=== PATIENT | female | born 1980 | race Caucasian/White ===

== ENCOUNTER 2017-05-12 15:19 | Emergency (ER) | payer SELFPAY ==
[2017-05-12] MEDS ORDERED: Ketorolac INJ* 60 MG/2 ML VIAL IM ONE (16:34)
--- NOTE | 2017-05-12 16:43 | UC ---
Back Pain HPI - HPI Summary HPI Summary: 37 y/o female presents to the urgent care c/o of lower back pain after [facility] and "tweaked" her back at 1300pm. Pt reports her pain is 10/10 specially with movement, walking or sitting. Pt states she injured her back 3 years ago at work, but she has never f/u treatment since symptoms resolved. Pt denies fever, urinary or fecal incontinence. Saddle anesthesia, tingling or numbness over the lower extremities, SOB, chest pain, N/ V/D. Pt has not other complains - History of Current Complaint Chief Complaint: UCBackPain Stated Complaint: BACK PAIN-PT FELL Time Seen by Provider: 05/12/17 16:24 Hx Obtained From: Patient Hx Last Menstrual Period: today ?: No Onset/Duration: Sudden Onset, Lasting Hours, Still Present Timing: Constant Severity Initially: Severe Severity Currently: Severe Pain Intensity: 10 Pain Scale Used: 0-10 Numeric Back Pain: Is Discrete @ - alt the lower back w/ any radiation Character: Sharp Aggravating: Movement, Walking Alleviating: Rest Associated Signs And Symptoms: Positive: Negative. Negative: Fever, Weakness, Numbness, Bladder Incontinence, Bowel Incontinence, Weight Loss, Pain with Weight Bearing - Risk Factors AAA Risk Factors: Negative TAD Risk Factors: Negative Cauda Equina Risk Factors: Negative Epidural Abscess Risk Factors: Negative - Allergies/Home Medications Allergies/Adverse Reactions: Allergies Allergy/AdvReac Type Severity Reaction Status Date / Time No Known Allergies Allergy Verified 04/14/16 17:24 PMH/Surg Hx/FS Hx/Imm Hx Previously Healthy: Yes - Surgical History Surgical History: Yes Surgery Procedure, Year, and Place: tubal ligation, 1999,. jaw repair 2004. LT HAND - TENDON REPAIR - Family History Known Family History: Positive: Hypertension Family History: DVT - Social History Occupation: Employed Full-time Lives: With Family Alcohol Use: None Substance Use Type: None Smoking Status (MU): Former Smoker Type: Cigarettes Amount Used/How Often: 2-3 cigs daily Household Exposure Type: Cigarettes Review of Systems Constitutional: Negative Skin: Negative Eyes: Negative ENT: Negative Respiratory: Negative Cardiovascular: Negative Gastrointestinal: Negative Genitourinary: Negative Motor: Negative Neurovascular: Negative Musculoskeletal: Other: - Lower back pain Neurological: Negative Psychological: Negative All Other Systems Reviewed And Are Negative: Yes Physical Exam Triage Information Reviewed: Yes Appearance: Well-Appearing, No Pain Distress, Well-Nourished Vital Signs: Initial Vital Signs Temp 98.1 F 05/12/17 15:35 Pulse 78 05/12/17 15:35 Resp 18 05/12/17 15:35 BP 151/83 05/12/17 15:35 Pulse Ox 98 05/12/17 15:35 Vital Signs Reviewed: Yes Eye Exam: Normal Eyes: Positive: Conjunctiva Clear - PERRLA, EOMI, fundi grossly normal ENT Exam: Normal ENT: Positive: Normal ENT inspection, Hearing grossly normal, Pharynx normal, TMs normal Dental Exam: Normal Neck exam: Normal Neck: Positive: Supple, Nontender, No Lymphadenopathy Respiratory Exam: Normal Respiratory: Positive: Chest non-tender, Lungs clear, Normal breath sounds Cardiovascular Exam: Normal Cardiovascular: Positive: RRR, No Murmur, Pulses Normal, Brisk Capillary Refill Abdominal Exam: Normal Abdomen Description: Positive: Nontender, No Organomegaly, Soft. Negative: CVA Tenderness (R), CVA Tenderness (L) Bowel Sounds: Positive: Present Musculoskeletal Exam: Normal Musculoskeletal: Positive: Other: - BACK: Patient walked into the urgent care room with symmetric ambulation, No signs of limping, antalgic, able to bear weight. No signs of trauma, No masses palpated. Point tenderness at the level of L5-S1, w/ paraspinal muscle tenderness and spasm at the same level. No CVAT, no flank ecchymosis . No sacroiliac notch tenderness, No saddle anesthesia.ROM: limited flexion/ extension/ lateral bending and rotation due to pain, Straight Leg Raise: negative. Patellar reflexes: brisk, symmetric Muscle strength lower extremities. Dorsiflexion/ plantar flexion of ankles. Heel/ toe walk. Lower extremities: Femoral, popliteal, posterior tibial, and dorsalis pedis pulses WNL Neurological Exam: Normal Psychological Exam: Normal Skin Exam: Normal Back Pain Course/Dx - Course Course Of Treatment: 37 y/o female presents to the urgent care c/o of lower back pain after she stepped off the curb at [employer] and "tweaked" her back at 1300pm. HX obtained. Lubosacral Xray ordered: Impression: negative. Pt D/C home w/ Rx Narpoxen and Felxeril Po to alleviate symptoms. Pt BP elevated today, advised to decrease salt intake and monitor her BP and f/u with her PCP for furhter management and treatment. Pt understood and agreed. - Differential Dx/Diagnosis Differential Diagnosis/HQI/PQRI: Arthritis, Herniated Disc, Renal Colic, Septic Arthritis, Strain, Sprain Provider Diagnoses: 1- Acute lower back pain. 2- Elevated blood pressure w/o HX of HTN Discharge - Discharge Plan Condition: Stable Disposition: HOME Prescriptions: Cyclobenzaprine TAB* [Flexeril 10 MG TAB*] 10 mg PO TID PRN #21 tab PRN Reason: Spasms - Back Naproxen TAB* [Naprosyn 250 mg TAB*] 500 mg PO Q8H PRN #21 tab PRN Reason: Pain Patient Education Materials: Acute Low Back Pain (ED), Low Sodium Diet (ED) Referrals: [facility] [place] PHYSICIAN REFERRAL [Outside] - 1 Week No Primary Care Phys,NOPCP [Primary Care Provider] - Additional Instructions: Please take medications as directed. Please apply ice, rest and wear a back support. Avoid strenuous exercise, heavy lifting. Please f/u with a PCP form the [facility] referral center for further evaluation and treatment if not improvement or symptoms worsen.
--- NOTE | 2017-05-12 17:23 | RAD ---
Indication: Low back pain post fall today. Severe pain and decreased range of motion. Comparison: February 04, 2016 MRI. Technique: AP, lateral, and oblique views lumbar sacral spine. Report: Alignment is anatomic. No cortical disruption or trabecular impaction to indicate a vertebral body fracture. Oblique views without evidence for spondylolysis. Preserved disc spaces. Unremarkable soft tissue contours. Moderately large volume of stool in the colon. IMPRESSION: Negative lumbar sacral spine radiographic exam. No traumatic injury evident.
[2017-05-12 17:24] VITALS: BP 133/65
== END 2017-05-12 17:41 | disposition home or self-care (01) ==
LOC: UCEAST 15:19
DX: M54.5 Low back pain (principal); R03.0 Elevated blood-pressure reading, without diagnosis of hypertension; Z87.891 Personal history of nicotine dependence
CPT/HCPCS: 72110; 96372; 99212; G0463; J1885

== ENCOUNTER 2017-05-27 14:39 | Emergency (ER) | payer SELFPAY ==
[2017-05-27 15:05] VITALS: BP 122/58
--- NOTE | 2017-05-27 15:12 | UC ---
Bite Injury/Animal HPI - HPI Summary HPI Summary: 37 year old female presents with a insect bite on her right forearm. - History of Current Complaint Chief Complaint: DISHAkin Stated Complaint: BUG BITE WITH RED LINE ON ARM Time Seen by Provider: 05/27/17 15:10 Hx Last Menstrual Period: 05/05/17 - Allergies/Home Medications Allergies/Adverse Reactions: Allergies Allergy/AdvReac Type Severity Reaction Status Date / Time No Known Allergies Allergy Verified 04/14/16 17:24 Home Medications: Home Medications Diphenhydramine HCl (Topical) [Benadryl Itch Stopping 2% GEL] 05/27/17 [History ] Diphenhydramine HCl [Benadryl Allergy 25 MG TAB] 50 mg PO 05/27/17 [History] PMH/Surg Hx/FS Hx/Imm Hx Previously Healthy: Yes - Surgical History Surgical History: Yes Surgery Procedure, Year, and Place: tubal ligation, 1999,. jaw repair 2004. LT HAND - TENDON REPAIR - Family History Known Family History: Positive: Hypertension Family History: DVT - Social History Alcohol Use: None Substance Use Type: None Smoking Status (MU): Former Smoker Type: Cigarettes Amount Used/How Often: 2-3 cigs daily Household Exposure Type: Cigarettes Review of Systems Constitutional: Negative Skin: Other - right forearm insect bite Eyes: Negative ENT: Negative Respiratory: Negative Cardiovascular: Negative Gastrointestinal: Negative Genitourinary: Negative Motor: Negative Neurovascular: Negative Musculoskeletal: Negative Neurological: Negative Psychological: Negative All Other Systems Reviewed And Are Negative: Yes Physical Exam Triage Information Reviewed: Yes Vital Signs: Initial Vital Signs Temp 36.7 C 05/27/17 15:02 Pulse 85 05/27/17 15:02 Resp 18 05/27/17 15:02 BP 122/58 05/27/17 15:02 Pulse Ox 100 05/27/17 15:02 Eye Exam: Normal ENT Exam: Normal Dental Exam: Normal Neck exam: Normal Neck: Positive: 1 Respiratory Exam: Normal Cardiovascular Exam: Normal Abdominal Exam: Normal Musculoskeletal Exam: Normal Neurological Exam: Normal Psychological Exam: Normal Skin: Positive: Other - right forearm insect bite Bite Injury Course/Dx - Differential Dx/Diagnosis Provider Diagnoses: right forearm insect bite Discharge - Discharge Plan Condition: Stable Disposition: HOME Prescriptions: Mupirocin 2% OINT* [Bactroban 2 % Oint*] 1 applic TOPICAL BID #1 tube Sulfamethox/Trimethoprim DS* [Bactrim DS 800/160 TAB*] 1 tab PO BID #14 tab Patient Education Materials: Insect Bite or Sting (ED) Referrals: No Primary Care Phys,NOPCP [Primary Care Provider] -
== END 2017-05-27 15:59 | disposition home or self-care (01) ==
LOC: UCEAST 14:39
DX: S50.861A Insect bite (nonvenomous) of right forearm, initial encounter (principal); Z87.891 Personal history of nicotine dependence; W57.XXXA Bitten or stung by nonvenomous insect and other nonvenomous arthropods, initial encounter
CPT/HCPCS: 99212; G0463

== ENCOUNTER 2017-07-26 13:34 | Emergency (ER) | payer SELFPAY ==
[2017-07-26 14:23] VITALS: BP 122/63
--- NOTE | 2017-07-26 15:01 | UC ---
Skin Complaint HPI - HPI Summary HPI Summary: bite five insect bites on knee that are getting more painful red and swollen-- no streaking - History of Current Complaint Chief Complaint: UCSkin Time Seen by Provider: 07/26/17 15:00 Stated Complaint: SPIDER BITE Hx Obtained From: Patient Hx Last Menstrual Period: one week ago ?: No Onset/Duration: Sudden Onset, Lasting Days, Worse Since - getting worse through out the day Timing: Constant Onset Severity: Mild Current Severity: Moderate Pain Intensity: 6 Pain Scale Used: 0-10 Numeric Location: Discrete Character: Swelling, Pain, Redness Aggravating Factor(s): Nothing Alleviating Factor(s): Nothing Associated Signs & Symptoms: Positive: Negative Related History: Insect Bite/Sting - Allergy/Home Medications Allergies/Adverse Reactions: Allergies Allergy/AdvReac Type Severity Reaction Status Date / Time No Known Allergies Allergy Verified 07/26/17 14:23 Review of Systems Constitutional: Negative Skin: Other - spreading painful erythema Eyes: Negative ENT: Negative Respiratory: Negative Cardiovascular: Negative Gastrointestinal: Negative Genitourinary: Negative Motor: Negative Neurovascular: Negative Musculoskeletal: Negative Neurological: Negative Psychological: Negative Is Patient Immunocompromised?: No All Other Systems Reviewed And Are Negative: Yes PMH/Surg Hx/FS Hx/Imm Hx Previously Healthy: Yes - Surgical History Surgical History: Yes Surgery Procedure, Year, and Place: tubal ligation, 1999,. jaw repair 2004. LT HAND - TENDON REPAIR - Family History Known Family History: Positive: Hypertension Family History: DVT - Social History Occupation: Employed Full-time Lives: With Family Alcohol Use: None Substance Use Type: None Smoking Status (MU): Former Smoker Type: Cigarettes Amount Used/How Often: 2-3 cigs daily Household Exposure Type: Cigarettes Physical Exam Triage Information Reviewed: Yes Appearance: Well-Appearing, No Pain Distress, Well-Nourished Vital Signs: Initial Vital Signs Temp 98.0 F 07/26/17 14:21 Pulse 77 07/26/17 14:21 Resp 12 07/26/17 14:21 BP 122/63 07/26/17 14:21 Pulse Ox 100 07/26/17 14:21 Vital Signs Reviewed: Yes Eye Exam: Normal Eyes: Positive: Conjunctiva Clear ENT Exam: Normal ENT: Positive: Normal ENT inspection, Hearing grossly normal. Negative: Nasal congestion, Nasal drainage, Trismus, Muffled/hoarse voice Dental Exam: Normal Neck exam: Normal Neck: Positive: Supple, Nontender Respiratory Exam: Normal Respiratory: Positive: Chest non-tender, No respiratory distress, No accessory muscle use Cardiovascular Exam: Normal Cardiovascular: Positive: RRR, Pulses Normal, Brisk Capillary Refill Musculoskeletal Exam: Normal Musculoskeletal: Positive: Strength Intact, ROM Intact, No Edema Neurological Exam: Normal Neurological: Positive: Alert, Muscle Tone Normal Psychological Exam: Normal Skin: Positive: Other - erythema around 5 insect bites 3 have blistered and opened Course/Dx - Course Course Of Treatment: Bactrim, warm compress follow with pcp - Diagnoses Provider Diagnoses: cellulitis right knee Discharge - Discharge Plan Condition: Stable Disposition: HOME Prescriptions: Ibuprofen TAB* [Motrin TAB* 600 MG] 600 mg PO Q6H PRN #40 tab PRN Reason: pain Sulfamethox/Trimethoprim DS* [Bactrim DS 800/160 TAB*] 1 tab PO BID #20 tab Patient Education Materials: Wound Infection (ED), Warm Compress or Soak (ED) Referrals: [facility] [Provider Group] - If Needed [facility] [Outside] - If Needed
== END 2017-07-26 15:19 | disposition home or self-care (01) ==
LOC: UCEAST 13:34
DX: L03.115 Cellulitis of right lower limb (principal); Z87.891 Personal history of nicotine dependence
CPT/HCPCS: 99212; G0463

== ENCOUNTER 2017-11-30 10:09 | Emergency (ER) | payer SELFPAY ==
[2017-11-30 10:26] VITALS: BP 134/67
--- NOTE | 2017-11-30 10:34 | UC ---
Nausea/Vomiting/Diarrhea HPI - HPI Summary HPI Summary: Pt presents with body aches, fatigue, vomiting, and diarrhea. She tells me that 3 days ago her symptoms began with body aches and progressed to nausea and vomiting with diarrhea. She did not go to work yesterday or today because of this. She has been drinking fluids and resting, but not able to eat much. Has some lower back pain, but states that she has a hx of chronic back pain and this is not new. Today she is feeling a little better and has been able to eat without difficulty. Denies fever, chills, SOB, chest pain, abdominal pain, dysuria, hematuria, or pelvic pain. - History of Current Complaint Chief Complaint: UCGeneralIllness Stated Complaint: VOMITING, WEAK Time Seen by Provider: 11/30/17 10:34 Hx Obtained From: Patient Hx Last Menstrual Period: 11/25/17 Onset/Duration: Gradual Onset Timing: Constant Severity Currently: None Pain Intensity: 0 - Allergies/Home Medications Allergies/Adverse Reactions: Allergies Allergy/AdvReac Type Severity Reaction Status Date / Time No Known Allergies Allergy Verified 11/30/17 10:26 Home Medications: Home Medications Naproxen Sodium [Aleve] 2 cap PO Q12HR PRN 11/30/17 [History Confirmed 11/30/17] PMH/Surg Hx/FS Hx/Imm Hx Previously Healthy: Yes - Surgical History Surgical History: Yes Surgery Procedure, Year, and Place: tubal ligation, 1999,. jaw repair 2004. LT HAND - TENDON REPAIR - Family History Known Family History: Positive: Hypertension Family History: DVT - Social History Occupation: Employed Full-time Lives: With Family Alcohol Use: None Substance Use Type: None Smoking Status (MU): Former Smoker Type: Cigarettes Amount Used/How Often: 2-3 cigs daily Household Exposure Type: Cigarettes - Immunization History Most Recent Tetanus Shot: UTD Review of Systems Constitutional: Fatigue, Other - Body aches Skin: Negative ENT: Negative Respiratory: Negative Cardiovascular: Negative Gastrointestinal: Vomiting, Diarrhea, Nausea Genitourinary: Negative Motor: Negative Neurovascular: Negative Musculoskeletal: Negative Neurological: Negative Psychological: Negative All Other Systems Reviewed And Are Negative: Yes Physical Exam Triage Information Reviewed: Yes Appearance: Well-Appearing, No Pain Distress, Well-Nourished Vital Signs: Initial Vital Signs Temp 98.3 F 02/13/18 10:21 Pulse 75 11/30/17 10:21 Resp 20 11/30/17 10:21 BP 134/67 11/30/17 10:21 Pulse Ox 100 11/30/17 10:21 Vital Signs Reviewed: Yes Eyes: Positive: Conjunctiva Clear. Negative: Conjunctiva Inflamed, Discharge ENT: Positive: Hearing grossly normal, Pharynx normal, TMs normal, Uvula midline. Negative: Pharyngeal erythema, Nasal congestion, Nasal drainage, TM bulging, TM dull, TM red, Tonsillar swelling, Tonsillar exudate, Hoarse voice, Sinus tenderness Neck: Positive: Supple, Nontender, No Lymphadenopathy Respiratory: Positive: Lungs clear, Normal breath sounds, No respiratory distress, No accessory muscle use Cardiovascular: Positive: RRR, No Murmur, Pulses Normal Abdomen Description: Positive: Nontender, No Organomegaly, Soft. Negative: CVA Tenderness (R), CVA Tenderness (L), Distended, Guarding Bowel Sounds: Positive: Present Neurological: Positive: Fatigued Psychological: Positive: Age Appropriate Behavior Skin: Negative: rashes Naus/Vom/Diarrhea Course/Dx - Course Course Of Treatment: UA with 2+ blood - negative for infection. Declines test as she has her tubes tied. Suspect viral gastroenteritis - Differential Dx/Diagnosis Provider Diagnoses: Viral gastroenteritis Condition At Discharge: Stable Discharge - Discharge Plan Condition: Stable Disposition: HOME Prescriptions: Ondansetron ODT TAB* [Zofran 4 MG Odt TAB*] 4 mg PO Q8H PRN #10 tab.odt PRN Reason: Nausea Patient Education Materials: Gastroenteritis (DC) Forms: *Work Release Referrals: No Primary Care Phys,NOPCP [Primary Care Provider] - Additional Instructions: If you develop a fever, shortness of breath, chest pain, new or worsening symptoms - please call your PCP or go to the ED. 1) Rest and drink plenty of fluids! 2) Zofran as needed every 8 hours for nausea
== END 2017-11-30 10:59 | disposition home or self-care (01) ==
LOC: UCEAST 10:09
DX: A08.4 Viral intestinal infection, unspecified (principal); R53.83 Other fatigue; Z87.891 Personal history of nicotine dependence
CPT/HCPCS: 81003; 99212; G0463

== ENCOUNTER 2018-06-16 12:56 | Emergency (ER) | payer SELFPAY ==
[2018-06-16 13:09] VITALS: BP 142/75
--- NOTE | 2018-06-16 13:13 | UC ---
Cardiac HPI - HPI Summary HPI Summary: Patient is a 38 y/o female who presents to [facility] c/o CP. She states the pain suddenly began at 12:30 AM at a 9/10 in severity, but went down to a 4/10 20 minutes ago. The pain is described as sharp, and is in the left side of her chest and left armpit. Patient states she also feels over-heated. Moving her arm and breathing makes the pain worse. She denies any nausea, diaphoresis, SOB , neck pain, recent cough, or recent chest congestion. She denies any trauma to her chest area. Patient also has had worsening left hip and back pain and swelling recently. She states after falling 3-4 years ago she began to have issues, and now feels that the pain has moved to the fatty tissues. Pain is made worse by heavy lifting and twists at work. Her left leg becomes tingly sometimes, but she denies any incontinence or weakness of her legs. Patient has been taking Ibuprofen and Naproxen for the pain. No PMHx HTN, DM, HLD, COPD, or asthma. She had a heart murmur as a child. FHx [place], CAD, DM, and her sister at 27 due to cardiac disease. Patient is a former smoker. - History of Current Complaint Stated Complaint: HIP/CHEST PAIN Time Seen by Provider: 06/16/18 13:02 Hx Obtained From: Patient Hx Last Menstrual Period: 05/25/18 Onset/Duration: Sudden Onset, Lasting Hours - 12:30, Still Present Current Severity: Moderate Pain Intensity: 5 Chest Pain Location: Left Anterior Character: Sharp/Stabbing Aggravating Factor(s): Movement - Arm, Deep Breaths Alleviating Factor(s): Nothing Associated Signs & Symptoms: Positive: Chest Pain. Negative: Numbness, Tingling , SOB, Diaphoresis, Nausea/Vomiting - Allergy/Home Medications Allergies/Adverse Reactions: Allergies Allergy/AdvReac Type Severity Reaction Status Date / Time No Known Allergies Allergy Verified 06/16/18 13:09 PMH/Surg Hx/FS Hx/Imm Hx Endocrine History: Other Other Endocrine History: NEGATIVE: DM Cardiovascular History: Other Other Cardiovascular History: heart murmur, NEGATIVE: HTN, HLD Respiratory History: Other Other Respiratory History: NEGATIVE: COPD, asthma - Surgical History Surgical History: Yes Surgery Procedure, Year, and Place: tubal ligation, 2000,. jaw repair 2005. LT HAND - TENDON REPAIR - Family History Known Family History: Positive: Cardiac Disease - [place], Hypertension, Diabetes, Other - DVT - Social History Alcohol Use: None Substance Use Type: None Smoking Status (MU): Former Smoker Type: Cigarettes Amount Used/How Often: 2-3 cigs daily Household Exposure Type: Cigarettes - Immunization History Most Recent Tetanus Shot: UTD Review of Systems Constitutional: Negative - Diaphoresis Respiratory: Negative - Shortness of Breath, cough, chest congestion Cardiovascular: Chest Pain Gastrointestinal: Negative - Nausea, incontinence Genitourinary: Negative - Incontinence Motor: Negative - Weakness Musculoskeletal: Negative - Neck pain, Myalgia - Left back and hip Neurological: Paresthesia - Occasional left leg All Other Systems Reviewed And Are Negative: Yes Physical Exam - Summary Physical Exam Summary: General: well-appearing, mild pain distress Skin: warm, color reflects adequate perfusion, dry Head: normal Eyes: EOMI, [place] ENT: normal Neck: supple, nontender Respiratory: CTA, breath sounds present Cardiovascular: RRR Abdomen: soft, nontender Bowel: present Musculoskeletal: strength/ROM intact, tenderness to palpation to the left of her lower lumbar, most tenderness to left sacral iliac joints Neurological: sensory/motor intact, A&O x3, no neurological deficit Psychological: affect/mood appropriate Triage Information Reviewed: Yes Vital Signs: Initial Vital Signs Temp 98.6 F 06/16/18 13:00 Pulse 73 06/16/18 13:00 Resp 18 06/16/18 13:00 BP 142/75 06/16/18 13:00 Pulse Ox 98 06/16/18 13:00 Vital Signs Reviewed: Yes Diagnostics - EKG EKG Comments: 12:57 Cardiac Rate: NL - 76 bpm Cardiac Rhythm: Sinus: Normal Ectopy: None ST Segment: Normal - Assessment/Plan Course Of Treatment: DISCUSSED TRANSFER TO THE EMERGENCY DEPARTMENT BY AMBULANCE ; THE PATIENT DECLINED BUT, AGREED TO GO BY PRIVATE CAR. - Clinical Impression Provider Diagnoses: left sacroiliitis. low back pain. chest pain Discharge - Sign-Out/Discharge Documenting (check all that apply): Patient Departure - Discharge All imaging exams completed and their final reports reviewed: No Studies - Discharge Plan Condition: Stable Disposition: HOME Prescriptions: Cyclobenzaprine TAB* [Flexeril 10 MG TAB*] 10 mg PO TID PRN #15 tab MDD 3 PRN Reason: Pain HYDROcodone/ACETAMIN 5-325 MG* [Dewitt 5-325 TAB*] 1 tab PO Q4H PRN #30 tab MDD 6 PRN Reason: Pain Patient Education Materials: Chest Pain (ED), Acute Low Back Pain (ED), Sacroiliitis (ED), Lower Back Exercises (ED) Referrals: [facility] [Outside] Additional Instructions: GO DIRECTLY TO THE EMERGENCY DEPARTMENT FOR FURTHER EVALUATION. - Billing Disposition and Condition Condition: STABLE Disposition: Home - Attestation Statements Document Initiated by Scribe: Yes Documenting Scribe: Karena Mckee Provider For Whom Scribe is Documenting (Include Credential): Yung Fofana MD Scribe Attestation: Karena Cruz scribed for Yung Fofana MD on 06/16/18 at 1408. Scribe Documentation Reviewed: Yes Provider Attestation: The documentation as recorded by the Karena sullivan accurately reflects the service I personally performed and the decisions made by me, Yung Fofana MD
[2018-06-16] MEDS ORDERED: Aspirin 81 mg CHEW TAB* 81 MG TAB.CHEW PO ONE (13:23)
== END 2018-06-16 13:45 | disposition home or self-care (01) ==
LOC: UCEAST 12:56
DX: M46.1 Sacroiliitis, not elsewhere classified (principal); R07.9 Chest pain, unspecified; M54.5 Low back pain; Z87.891 Personal history of nicotine dependence
CPT/HCPCS: 99212; A9270-GY; G0463

== ENCOUNTER 2018-11-01 17:44 | Emergency (ER) | payer OTHER ==
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
[2018-11-01] MEDS ORDERED: Ibuprofen TAB* 600 MG PO ONE (18:27)
[2018-11-01 20:09] LABS: ABS Basophils 0.1 10^3/ul (0-0.2); ABS Eosinophils 0.1 10^3/ul (0-0.6); ABS Lymphocytes 1.6 10^3/ul (1.0-4.8); ABS Monocytes 0.8 10^3/ul (0-0.8); ABS Nucleated RBC 0 10^3/ul; Eosinophil % 0.3 %; Hematocrit 45 % (35-47); Hemoglobin 15.3 g/dl (12.0-16.0); Mean Corpuscular HGB Conc 34 g/dl (31-36); Mean Corpuscular Hemoglobin 30 pg (27-31); Mean Corpuscular Volume 87 fL (80-97); Mean Platelet Volume 6.8 fL (7.4-10.4); Nucleated Red Blood Cells % 0; Platelet Count 357 10^3/ul (150-450); Red Blood Count 5.17 10^6/ul (4.00-5.40); Red Cell Distribution Width 13 % (10.5-15); White Blood Count 19.5 10^3/ul (3.5-10.8)
[2018-11-01 20:27] LABS: Albumin 4.3 g/dL (3.2-5.2); Albumin/Globulin Ratio 1.5 (1-3); BUN/Creatinine Ratio 16.7 (8-20); Calcium 9.2 mg/dL (8.6-10.3); Globulin 2.8 g/dL (2-4); Total Bilirubin 0.3 mg/dL (0.2-1.0); Total Protein 7.1 g/dL (6.4-8.9)
[2018-11-01] MEDS ORDERED: Iohexol 300* (CONTRAST) 10 ML SDV IV ONE (20:32)
[2018-11-01 22:44] VITALS: BP 139/82
== END 2018-11-01 22:20 | disposition home or self-care (01) ==
LOC: ED 17:44
DX: S22.31XA Fracture of one rib, right side, initial encounter for closed fracture (principal); J43.9 Emphysema, unspecified; V43.52XA Car driver injured in collision with other type car in traffic accident, initial encounter; Y92.9 Unspecified place or not applicable; Z87.891 Personal history of nicotine dependence
CPT/HCPCS: 36415; 71046; 71260; 80053; 80320; 82550; 85025; 93005; 96374; 99282; A9270-GY; G0480; Q9967

== ENCOUNTER 2018-11-24 13:42 | Emergency (ER) | payer SELFPAY ==
[2018-11-24 13:58] VITALS: BP 130/80
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
== END 2018-11-24 15:30 | disposition home or self-care (01) ==
LOC: UCEAST 13:42
DX: M25.562 Pain in left knee (principal); M25.561 Pain in right knee; Z87.891 Personal history of nicotine dependence; T14.8XXD Other injury of unspecified body region, subsequent encounter; V89.2XXD Person injured in unspecified motor-vehicle accident, traffic, subsequent encounter
CPT/HCPCS: 99211; G0463

== ENCOUNTER 2019-05-16 14:00 | Emergency (ER) | payer OTHER ==
[2019-05-16 15:48] VITALS: BP 131/65
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
== END 2019-05-16 15:47 | disposition home or self-care (01) ==
LOC: ED 14:00
DX: S60.211A Contusion of right wrist, initial encounter (principal); W22.8XXA Striking against or struck by other objects, initial encounter; Y92.511 Restaurant or cafe as the place of occurrence of the external cause; Y99.0 Civilian activity done for income or pay; Z87.891 Personal history of nicotine dependence
CPT/HCPCS: 99282